=== PATIENT | male | born 2000 | race Caucasian/White ===

== ENCOUNTER 2022-01-06 17:47 | Emergency (ER) | payer SELFPAY ==
[2022-01-06 17:48] VITALS: BP 149/88; PULSE 92; RESP 18; TEMP 37.1; O2SAT 100; BMI 31.4
--- NOTE | 2022-01-06 18:09 | XR_ITS ---
PROCEDURE INFORMATION: Exam: XR Chest Exam date and time: 01/06/2022 6:12 PM Age: 21 years old Clinical indication: Cough TECHNIQUE: Imaging protocol: Radiologic exam of the chest. AP portable upright exam 6:15 p.m. Views: 1 view. COMPARISON: No relevant prior studies available. FINDINGS: Lungs: Mild hypoventilation/low lung volumes. No focal consolidation. No acute findings. Pulmonary vessels do not appear congested. Pleural spaces: Unremarkable. No significant pleural effusion. No pneumothorax. Heart/Mediastinum: Mildly enlarged cardiac silhouette, accentuated by shallow inspiration and portable AP technique. Bones/joints: There are spinal degenerative changes, with multilevel disc narrrowing and spondylosis. Soft tissues: No acute findings in the soft tissues. IMPRESSION: 1. Mild hypoventilation/low lung volumes. No acute findings. No consolidation. 2. Mildly enlarged cardiac silhouette, accentuated by shallow inspiration and portable AP technique. Pulmonary vessels do not appear congested.
--- NOTE | 2022-01-06 18:20 | [facility].EDGENADL ---
ED Disposition Clinical Impression: Hypokalemia, Hypocalcemia Syncope Qualifiers: Syncope type: vasovagal syncope Qualified Code(s): R55 - Syncope and collapse Disposition: Home, Self-Care Condition on Discharge: Good Instructions: DI for Hypokalemia Referrals: Suman Jo [Primary Care Provider] - - Critical Care Critical Care Time: No Attestation: On , the high probability of a clinically significant, sudden or life threatening deterioration of the following system(s) required my full and direct attention, intervention and personal management. The time I documented below is in addition to time spent performing reported procedures but includes the following listed in this critical care notation. Medical Decision Making - Medical Records Medical records reviewed: Yes: I reviewed the patient's medical records. - Ever Inquiry Pt receiving controlled substance: No Vital Signs: 01/06/22 17:48 Temperature 98.7 F Temperature Source Oral Pulse Rate [Left Radial] 92 H Respiratory Rate 18 Blood Pressure [Right Arm] 149/88 H Blood Pressure Mean [Right Arm] 108 Blood Pressure Source [Right Arm] Automatic Cuff Blood Pressure Position [Right Arm] Sitting 02 Sat by Pulse Oximetry 100 - Lab Data Lab Results 01/06/22 19:15: WBC 9.8, RBC 5.11, Hgb 15.3, Hct 45.0, MCV 88.1, MCH 29.9, MCHC 34.0, RDW 14.2, Plt Count 216, MPV 8.9, Neut % (Auto) 83.7 H, Lymph % (Auto) 11.2, Ransom % (Auto) 3.6, Eos % (Auto) 0.4, Baso % (Auto) 1.1, Neut # (Auto) 8.2 H, Lymph # (Auto) 1.1, Ransom # (Auto) 0.4, Eos # (Auto) 0.0, Baso # (Auto) 0.1 01/06/22 19:15: Sodium 141, Potassium 2.0 L*, Chloride 123 H, Carbon Dioxide 17 L, Anion Gap 3.0 L, BUN 6 L, Creatinine 0.60 L, Estimated Creat Clear 276, Estimated GFR 167, Est GFR ( Amer) 202, Glucose 68 L, Calcium 4.9 L*, Total Bilirubin 0.1 L, AST 16 L, ALT 24, Alkaline Phosphatase 53, Troponin I < 0.01, Total Protein 4.3 L, Albumin 2.1 L, Globulin 2.2, Albumin/Globulin Ratio 1.0 L Result diagrams: 01/06/22 19:15 01/06/22 19:15 Orders (Tests/Meds): ED MEDICATIONS Generic Name Dose Route Start Last Admin Trade Name Freq PRN Reason Stop Dose Admin Potassium Chloride/Water 100 mls @ 100 mls/hr 01/06/22 19:51 01/06/22 20:03 Potassium Chloride 10meq/100ml Ivpb IV 01/06/22 21:50 100 mls/hr Q1H BREONNA Administration Calcium Gluconate 1,000 mg/ 60 mls @ 60 mls/hr 01/06/22 19:51 Sodium Chloride IV 01/06/22 20:50 ONCE ONE Magnesium Sulfate 2 gm in 50 mls @ 50 mls/hr 01/06/22 19:51 Magnesium Sulfate 2gm/50ml Premix IV 01/06/22 20:50 ONCE ONE Discontinued Medications Generic Name Dose Route Start Last Admin Trade Name Freq PRN Reason Stop Dose Admin Sodium Chloride 1,000 mls @ 999 mls/hr 01/06/22 18:15 01/06/22 18:59 Sod Chlor 0.9% 1000ml Bag IV 01/06/22 19:15 999 mls/hr .Q1H1M BREONNA Administration Potassium Chloride 80 meq 01/06/22 19:50 01/06/22 20:03 Potassium Chloride 20meq Tab PO 01/06/22 19:51 80 meq ONCE ONE Administration ORDERS Category Date Time Status Troponin I Q3H Lab 01/06/22 21:15 Ordered Troponin I Q3H Lab 01/07/22 00:15 Ordered - Radiology Data #1 Image(s): Chest Image Reviewed: Yes I reviewed the patient's radiology results, Yes I reviewed the patient's radiology image, Yes I have reviewed radiologist's interpretation IMPRESSION: 1. Mild hypoventilation/low lung volumes. No acute findings. No consolidation. 2. Mildly enlarged cardiac silhouette, accentuated by shallow inspiration and portable AP technique. Pulmonary vessels do not appear congested. - ECG Data Tracing #1 I reviewed this ECG and interpreted as documented below: No ventricular rate of 77 bpm, WI interval of 136 ms, normal QTC. Sinus rhythm with nonspecific changes. ECG initial impression date: 01/06/22 ECG initial impression time: 19:06 - Reevaluation(s) Time: 19:52 Reevaluation #1: On reevaluation
--- NOTE | 2022-01-06 19:06 | ECG_ITS ---
APPROVED REPORT Exam: Resting ECG HR:77 bpm ECG Measurements Heart Rate 77 AXES DC 136 P 10 QRSd 113 QRS 32 QT 368 T 7 QTc 400 Conclusion SINUS RHYTHM WITH SINUS ARRHYTHMIA INCOMPLETE RIGHT BUNDLE BRANCH BLOCK [90+ ms QRS DURATION, TERMINAL R IN V1/V2, 40+ ms S IN I/aVL/V4/V5/V6] NONSPECIFIC ST & T-WAVE ABNORMALITY BORDERLINE ECG UNCONFIRMED REPORT Electronically signed by : Miguelangel Gibson MD 01/08/2022 14:44:21
[2022-01-06 19:32] LABS: Basophils # 0.1 K/mm3 (0-0.2); Basophils % 1.1 % (0.1-2.0); Eosinophils % 0.4 % (0.1-12.0); Hemoglobin 15.3 g/dL (14.1-18.0); Lymphocytes # 1.1 K/mm3 (0.7-4.5); Lymphocytes % 11.2 % (10-50); Mean Corpuscular Hemoglobin 29.9 pg (27.0-31.2); Mean Corpuscular Volume 88.1 fl (80-94); Mean Platelet Volume 8.9 fl (7.4-10.4); Monocytes # 0.4 K/mm3 (0.1-1.0); Monocytes % 3.6 % (1.7-9.3); Neutrophils # 8.2 K/mm3 (1.8-7.8); Neutrophils % 83.7 % (37.0-80.0); Platelet Count 216 K/mm3 (142-424); Red Blood Count 5.11 M/mm3 (4.60-6.20); Red Cell Distribution Width 14.2 % (11.5-17.5); White Blood Count 9.8 K/mm3 (4.8-10.8)
[2022-01-06 19:35] LABS: Chloride 123 mmol/L (98-107); Sodium 141 mmol/L (136-145)
[2022-01-06 19:37] LABS: Alanine Aminotransferase 24 U/L (12-78); Alkaline Phosphatase 53 U/L (38-126); Aspartate Amino Transferase 16 U/L (17-59); Blood Urea Nitrogen 6 mg/dl (9-20); Creatinine Clearance Estimated 276 mL/min (50-200); Estimated Glomerular Filt Rate 167 ml/min (>60); GFR (African American) 202 ML/MIN (>60)
[2022-01-06 19:38] LABS: Albumin Level 2.1 g/dl (3.5-5.0); Carbon Dioxide 17 mmol/L (22.0-30.0); Globulin 2.2 g/dL (1.3-3.2); Total Protein,Serum 4.3 g/dl (6.3-8.2)
[2022-01-06 19:39] LABS: Glucose 68 mg/dl (74-100)
[2022-01-06 19:46] LABS: Bilirubin,Total 0.1 mg/dl (0.2-1.3)
[2022-01-06 19:47] LABS: Calcium 4.9 mg/dl (8.4-10.2)
[2022-01-06 19:57] LABS: Troponin I < 0.01 ng/ml (0.00-0.034)
--- NOTE | 2022-01-06 21:06 | PC.NURSE ---
pt asked to speak with nurse and S Call spoke with pt. PT States he can't stay any longer due to not having a ride and will sign out AMA.
[2022-01-06 21:08] VITALS: BP 128/74; PULSE 83; RESP 18; TEMP 33.3; O2SAT 100
== END 2022-01-06 21:10 | disposition left against medical advice (07) ==
PROVIDERS: Emergency Provider Emergency Medicine; PCP Pediatrics
DX: T78.40XA Allergy, unspecified, initial encounter (principal); R55 Syncope and collapse; E87.6 Hypokalemia; E83.51 Hypocalcemia; R06.02 Shortness of breath; R22.1 Localized swelling, mass and lump, neck; R21 Rash and other nonspecific skin eruption
CPT/HCPCS: 71045; 80053; 84484; 85025; 93005; 96361; 96374; 96375; 99285